=== PATIENT | male | born 1955 ===

== ENCOUNTER 2024-01-22 05:15 | Inpatient (IN) | payer OTHER ==
[~2024-01-22] VITALS: Ht 152.4 cm; Wt 79.4 kg
[~2024-01-22 05:15] MED LIST: ADULT LOW DOSE81 M1 PO; COZAAR25 MG PO; HYDROCHLOROTHIA25 MG PO; LANTUS SOL100 UNIT/1; LIPITOR20 MG PO; NIFEDIPINE20 MG PO
[2024-01-22] MEDS ORDERED: CEFTRIAXONE SODIUM 2,000 MG VIAL ONE (07:18)
[2024-01-22] MEDS ORDERED: LIDOCAINE HCL 1%/EPINEPHRINE 20ML VIAL IJ ONE (07:18)
[2024-01-22] MEDS ORDERED: BUPIVACAINE HCL/MPF 0.5% 30ML VIAL ONE (07:18)
[2024-01-22] MEDS ORDERED: METRONIDAZOLE/SODIUM CHLORIDE 500 MG/100 ML PIGGYBACK IV ONE (07:19)
[2024-01-22] MEDS ORDERED: RINGERS SOLUTION,LACTATED 1,000 ML IV SCH (11:45)
[2024-01-22] MEDS ORDERED: MORPHINE SULFATE 4 MG/ML VIAL IV PRN (11:45)
[2024-01-22] MEDS ORDERED: DEXTROSE 50 % IN WATER 0.5 G/ML DISP.SYRIN IV PRN (11:45)
[2024-01-22] MEDS ORDERED: ONDANSETRON HCL 2 MG/ML VIAL IV PRN (11:45)
[2024-01-22] MEDS ORDERED: GABAPENTIN 300 MG CAPSULE PO SCH (11:50)
[2024-01-22] MEDS ORDERED: OxyCODONE HCL 5 MG TABLET (ROXICODONE) PO PRN (12:00)
[2024-01-22] MEDS ORDERED: ACETAMINOPHEN 500 MG GEL..CAP PO SCH (12:00)
[2024-01-22] MEDS ORDERED: MORPHINE SULFATE 4 MG/ML VIAL IV ONE ×2 (12:30→13:00)
[2024-01-22] MEDS ORDERED: SIMETHICONE 125 MG CAPSULE PO SCH (13:00)
[2024-01-22 15:45] LABS: HEMATOCRIT 34.4 % (39.0-48.0); HEMOGLOBIN 11.9 g/dL (13-16.00); MEAN CELL VOLUME 95.6 fL (80.0-100.00); MEAN CORPUSCULAR HGB CONC 34.5 g/dl (32.0-36.0); PLATELET COUNT 185 K/uL (150-450); RED CELL DISTRIBUTION WIDTH 12.8 % (11.5-14.5)
[2024-01-22 16:14] LABS: ALBUMIN 3.4 gm/dL (3.4-5.0); CALCIUM 8.7 mg/dL (8.5-10.1); CREATININE SERUM 1.07 mg/dL (0.70-1.30); GFR 68.93; MAGNESIUM 1.5 mg/dL (1.8-2.4); PHOSPHOROUS 2.7 mg/dL (2.5-4.9); POTASSIUM 3.9 mEq/L (3.5-5.1)
[2024-01-22] MEDS ORDERED: POLYETHYLENE GLYCOL 3350 17 GM BLIST.PACK PO SCH (17:00)
[2024-01-22] MEDS ORDERED: FAMOTIDINE/PF 20 MG/10 ML SYRINGE IV PUSH SCH (21:00)
[2024-01-23 06:45] LABS: HEMATOCRIT 34.8 % (39.0-48.0); HEMOGLOBIN 12.4 g/dL (13-16.00); MEAN CORPUSCULAR HEMOGLOBIN 33.1 pg (27.00-32.0); MEAN CORPUSCULAR HGB CONC 35.5 g/dl (32.0-36.0); PLATELET COUNT 191 K/uL (150-450); RED BLOOD COUNT 3.74 M/uL (4.00-6.00); RED CELL DISTRIBUTION WIDTH 13.1 % (11.5-14.5)
[2024-01-23 07:12] LABS: ALBUMIN 3.2 gm/dL (3.4-5.0); CALCIUM 8.9 mg/dL (8.5-10.1); CREATININE SERUM 1.03 mg/dL (0.70-1.30); GFR 72.03; MAGNESIUM 1.5 mg/dL (1.8-2.4); PHOSPHOROUS 2.8 mg/dL (2.5-4.9); POTASSIUM 4.41 mEq/L (3.5-5.1)
[2024-01-23] MEDS ORDERED: NAPH,MB-DB/K PH,MBDB 1 PKT PACKET PO SCH (09:00)
[2024-01-23] MEDS ORDERED: LOSARTAN POTASSIUM 25 MG TABLET PO SCH (09:00)
[2024-01-23] MEDS ORDERED: LACTOBACILLUS ACIDOPHILUS 1 CAP CAP PO SCH (09:00)
[2024-01-23] MEDS ORDERED: ATORVASTATIN CALCIUM 20 MG TABLET PO SCH (09:00)
[2024-01-23] MEDS ORDERED: NIFEDIPINE 60 MG TAB.SA.OSM PO SCH (09:00)
[2024-01-23] MEDS ORDERED: HYDROCHLOROTHIAZIDE 25 MG TABLET PO SCH (09:00)
[2024-01-23] MEDS ORDERED: FAMOtidine 20 MG TABLET PO SCH (09:00)
[2024-01-23] MEDS ORDERED: MAGNESIUM CHLORIDE 70 MG TABLET.DR PO SCH (09:00)
[2024-01-23] MEDS ORDERED: MAGNESIUM SULFATE IN WATER 2 GM/50 ML PIGGYBAG IV NR (10:22)
[2024-01-23] MEDS ORDERED: MORPHINE SULFATE 4 MG/ML CARTRIDGE IV PRN (10:30)
[2024-01-23] MEDS ORDERED: hydrALAZINE HCL 20 MG VIAL IV PRN (13:15)
[2024-01-23] MEDS ORDERED: ENOXAPARIN SODIUM 40 MG/0.4 ML SYRINGE SUBCUTANEO SCH (17:00)
[2024-01-24] MEDS ORDERED: POLYETHYLENE GLYCOL 3350 17 GM BLIST.PACK PO SCH (09:00)
[2024-01-24 09:05] LABS: HEMOGLOBIN 13.1 g/dL (13-16.00); MEAN CELL VOLUME 92.7 fL (80.0-100.00); MEAN CORPUSCULAR HEMOGLOBIN 32.8 pg (27.00-32.0); MEAN CORPUSCULAR HGB CONC 35.4 g/dl (32.0-36.0); PLATELET COUNT 193 K/uL (150-450); RED BLOOD COUNT 3.99 M/uL (4.00-6.00); RED CELL DISTRIBUTION WIDTH 13.1 % (11.5-14.5)
[2024-01-24 10:12] LABS: ALBUMIN 3.4 gm/dL (3.4-5.0); CALCIUM 8.9 mg/dL (8.5-10.1); CREATININE SERUM 1.05 mg/dL (0.70-1.30); GFR 70.45; POTASSIUM 3.82 mEq/L (3.5-5.1)
[2024-01-24 10:35] LABS: PHOSPHOROUS 1.8 mg/dL (2.5-4.9)
[2024-01-24] MEDS ORDERED: POTASSIUM PHOS,M-BASIC-D-BASIC 15 MM in 0.9 % SODIUM CHLORIDE 250 ML IV NR (11:00)
[2024-01-24] MEDS ORDERED: NAPH,MB-DB/K PH,MBDB 1 PKT PACKET PO SCH (13:00)
[2024-01-24] MEDS ORDERED: INSULIN LISPRO 1,000 UNIT/10 ML UNITS SUBCUTANEO PRN (23:45)
[2024-01-24] MEDS ORDERED: DEXTROSE 50 % IN WATER 0.5 G/ML DISP.SYRIN IV PRN (23:45)
[2024-01-25 11:45] LABS: HEMATOCRIT 36.6 % (39.0-48.0); HEMOGLOBIN 12.8 g/dL (13-16.00); MEAN CELL VOLUME 93.6 fL (80.0-100.00); MEAN CORPUSCULAR HEMOGLOBIN 32.7 pg (27.00-32.0); MEAN CORPUSCULAR HGB CONC 34.9 g/dl (32.0-36.0); PLATELET COUNT 190 K/uL (150-450); RED BLOOD COUNT 3.91 M/uL (4.00-6.00); RED CELL DISTRIBUTION WIDTH 13.1 % (11.5-14.5)
[2024-01-25 12:20] LABS: ALBUMIN 3.4 gm/dL (3.4-5.0); CALCIUM 8.8 mg/dL (8.5-10.1); CREATININE SERUM 1.16 mg/dL (0.70-1.30); GFR 62.8; MAGNESIUM 1.8 mg/dL (1.8-2.4); PHOSPHOROUS 2.1 mg/dL (2.5-4.9); POTASSIUM 4.37 mEq/L (3.5-5.1)
[2024-01-25] MEDS ORDERED: NAPH,MB-DB/K PH,MBDB 1 PKT PACKET PO NR (13:15)
== END 2024-01-25 14:58 | disposition home or self-care (01) | DRG 331 ==
LOC: CIR.AMB 05:15 → O/R 14:15 → SURH 14:15
PROVIDERS: ADMIT Colon & Rectal Surgery; ATTEND Colon & Rectal Surgery
PROC: 07BB4ZZ Excision of Mesenteric Lymphatic, Percutaneous Endoscopic Approach (ICD-10-PCS; 2024-01-22)
PROC: 0WBF4ZZ Excision of Abdominal Wall, Percutaneous Endoscopic Approach (ICD-10-PCS; 2024-01-22)
PROC: 0DTF4ZZ Resection of Right Large Intestine, Percutaneous Endoscopic Approach (ICD-10-PCS; principal; 2024-01-22 07:00)
DX: K63.5 Polyp of colon (principal); R59.0 Localized enlarged lymph nodes; K66.0 Peritoneal adhesions (postprocedural) (postinfection)